=== PATIENT | female | born 1970 | race Caucasian/White ===

== ENCOUNTER 2020-07-26 05:59 | Emergency (ER) | payer OTHER ==
[2020-07-26 06:11] VITALS: TEMP 98.3
[2020-07-26] MEDS ORDERED: DIAZEPAM 5 MG/ML 2 ML INJ IVP STA (06:27)
[2020-07-26] MEDS ORDERED: KETOROLAC 15 MG/ML 1 ML VIAL IVP STA (06:30)
--- NOTE | 2020-07-26 06:39 | ED ---
Back Pain HPI - General Chief Complaint: Back Pain/Injury Stated Complaint: Back Pain Time Seen by Provider: 07/26/20 06:02 Source: patient, RN notes reviewed Limitations: no limitations - History of Present Illness Initial Comments: 79-year-old female presents emergency Department chief complaint of low back pain. Patient's been struggling with back pain since . She states that she was moving stuff at her house. Patient states that she felt some pulling in her back. Patient states pain is worsened in which she has pain radiating down her left leg. Patient does admit that she has a history of fusion dentist in 2018 L2 through L5. Patient denies any bowel, bladder incontinence or retention. Denies any saddle anesthesia or lower extremity paresthesias. She does have radicular symptoms of her left leg. Patient is able to ambulate and ambulated in the emergency department. Patient denies any abdominal pain no fevers or chills. Patient did take 2 [place] this morning which has mildly improved her symptoms. - Related Data Previous Rx's Medication Instructions Recorded Orphenadrine [Norflex] 100 mg PO Q12H #14 tablet.er 07/26/20 predniSONE 50 mg PO DAILY #5 tab 07/26/20 Allergies Allergy/AdvReac Type Severity Reaction Status Date / Time No Known Allergies Allergy Verified 07/26/20 06:10 Review of Systems ROS Statement: Those systems with pertinent positive or pertinent negative responses have been documented in the HPI. ROS Other: All systems not noted in ROS Statement are negative. Past Medical History Past Medical History: Osteoarthritis (OA) History of Any Multi-Drug Resistant Organisms: None Reported Past Surgical History: Back Surgery, Cholecystectomy, Orthopedic Surgery Past Psychological History: Anxiety, Depression Smoking Status: Former smoker Past Alcohol Use History: Occasional Past Drug Use History: None Reported General Exam Limitations: no limitations General appearance: alert, in no apparent distress Head exam: Present: atraumatic, normocephalic, normal inspection Eye exam: Present: normal appearance, PERRL, EOMI. Absent: scleral icterus, conjunctival injection, periorbital swelling Respiratory exam: Present: normal lung sounds bilaterally. Absent: respiratory distress, wheezes, rales, rhonchi, stridor Cardiovascular Exam: Present: regular rate, normal rhythm, normal heart sounds. Absent: systolic murmur, diastolic murmur, rubs, gallop, clicks GI/Abdominal exam: Present: soft, normal bowel sounds. Absent: distended, tenderness, guarding, rebound, rigid Extremities exam: Present: other (Lower extremity pulses equal bilaterally color equal warmth patient has full strength of lower extremities there is no unilateral weakness.) Back exam: Present: full ROM (Moderate discomfort with movement), tenderness (Left lumbar), muscle spasm, paraspinal tenderness. Absent: CVA tenderness (R), CVA tenderness (L), vertebral tenderness Neurological exam: Present: alert, oriented X3 Skin exam: Present: warm, dry, intact, normal color. Absent: rash Course Vital Signs 07/26/20 06:07 Temperature 98.3 F Pulse Rate 92 Respiratory 20 Rate Blood Pressure 131/85 O2 Sat by Pulse 96 Oximetry Medical Decision Making - Medical Decision Making X-rays reviewed stable postsurgical changes. Patient has no red flag symptoms. Patient has acute exacerbation of low back pain secondary to lifting boxes. Patient we discharged with oral steroids, pain control and muscle relaxers. Disposition Clinical Impression: Strain of lumbar region, Lumbar radiculopathy Disposition: HOME SELF-CARE Condition: Stable Instructions (If sedation given, give patient instructions): Acute Low Back Pain (ED) Additional Instructions: Please return to the Emergency Department if symptoms worsen or any other concerns. Prescriptions: Orphenadrine [Norflex] 100 mg PO Q12H #14 tablet.er predniSONE 50 mg PO DAILY #5 tab Is patient prescribed a controlled substance at d/c from ED?: No Referrals: Nonstaff,Physician [Primary Care Provider] - 1-2 days Time of Disposition: 07:55
[2020-07-26] MEDS ORDERED: KETOROLAC 15 MG/ML 1 ML VIAL ONE (06:41)
[2020-07-26] MEDS ORDERED: HYDROmorphone 1 MG/ML 1 ML SYRINGE IVP STA (06:55)
--- NOTE | 2020-07-26 07:51 | XR ---
EXAMINATION TYPE: XR lumbosacral spine min 4V DATE OF EXAM: 07/26/2020 CLINICAL HISTORY: pain COMPARISON: NONE TECHNIQUE: Frontal, lateral, and oblique images of the lumbar spine are obtained. FINDINGS: Postoperative changes of lumbar laminectomy and fusion. Intervertebral spacer at L4-5. Alig nment is anatomic. There are 5 lumbar type vertebral bodies identified. The lumbar spine shows [employer] alignment without evidence of acute fracture or dislocation. Vertebral body heights are withi n normal limits. The overlying soft tissue appears unremarkable. IMPRESSION: No acute fracture or dislocation is seen in the lumbar spine.ICD 10 NO FRACTURE, INITIAL EVALUATION
[2020-07-26] MEDS ORDERED: methylPREDNISolone SOD SUCCI 125 MG/2 ML VIAL IV STA (07:53)
[2020-07-26 08:04] VITALS: BP 128/93; PULSE 78; RESP 16
== END 2020-07-26 08:15 | disposition home or self-care (01) ==
LOC: EC 05:59
DX: S39.012A Strain of muscle, fascia and tendon of lower back, initial encounter (principal); M54.16 Radiculopathy, lumbar region; Z87.891 Personal history of nicotine dependence; Z98.1 Arthrodesis status; X58.XXXA Exposure to other specified factors, initial encounter
CPT/HCPCS: 72110; 99283; 96374; 96375 ×3; J2930; J3360; J1170; J1885

== ENCOUNTER 2021-02-21 18:45 | Emergency (ER) | payer MEDICARE, OTHER ==
[2021-02-21 19:52] VITALS: RESP 20
--- NOTE | 2021-02-21 20:33 | XR ---
EXAMINATION TYPE: XR chest 2V DATE OF EXAM: 02/21/2021 COMPARISON: NONE HISTORY: Fever and cough TECHNIQUE: 2 views FINDINGS: Heart and mediastinum are normal. Lungs are clear. Costophrenic angles are clear. There are densities over the lower cervical spine that could BE fusion surgery. IMPRESSION: No active cardiopulmonary disease. Normal heart.
--- NOTE | 2021-02-21 21:25 | ED ---
General Adult HPI - General Chief complaint: Upper Respiratory Infection Stated complaint: headach/cough/sore throat/fever Source: patient Mode of arrival: ambulatory Limitations: no limitations - History of Present Illness Initial comments: 50-year-old female presents emergency room with reported cough, fever, congestion and headache for the past 3 days. She did attend a baby shower and therefore has concern that she came into contact with someone with Covid. Patient requesting Covid testing. Admits nausea without vomiting. No abdominal pain. No chest pain. No history of underlying lung or cardiac disease. Denies diarrhea. No other alleviating, precipitating or modifying factors - Related Data Previous Rx's Medication Instructions Recorded Orphenadrine [Norflex] 100 mg PO Q12H #14 tablet.er 07/26/20 predniSONE 50 mg PO DAILY #5 tab 07/26/20 Allergies Allergy/AdvReac Type Severity Reaction Status Date / Time No Known Allergies Allergy Verified 02/21/21 19:52 Review of Systems ROS Statement: Those systems with pertinent positive or pertinent negative responses have been documented in the HPI. ROS Other: All systems not noted in ROS Statement are negative. Past Medical History Past Medical History: Osteoarthritis (OA) History of Any Multi-Drug Resistant Organisms: None Reported Past Surgical History: Back Surgery, Cholecystectomy, Orthopedic Surgery Additional Past Surgical History / Comment(s): neck surgery Past Psychological History: Anxiety, Depression Smoking Status: Former smoker Past Alcohol Use History: Occasional Past Drug Use History: None Reported General Exam Limitations: no limitations Course Vital Signs 02/21/21 02/21/21 19:48 21:30 Temperature 98.2 F 98.9 F Pulse Rate 84 77 Respiratory 20 20 Rate Blood Pressure 124/73 130/86 O2 Sat by Pulse 97 97 Oximetry Medical Decision Making - Medical Decision Making Upon arrival patient is swabbed for Covid in the waiting room. She also sent for chest x-ray. Patient brought back to the [facility] room. Patient is covid positive. Chest x-ray demonstrates no active cardiopulmonary disease. Patient requests discharge. Discussed treatment with BAM which she refused. Patient to quarentine for 14 days or until symptoms improve. Return to the ED for any new or worsening symptoms. Patient discharged in stable condision. - Lab Data Lab Results 02/21/21 Range/Units 19:53 Coronavirus (PCR) Detected A (Not Detectd) Disposition Clinical Impression: Cephalgia, COVID-19 Disposition: HOME SELF-CARE Condition: Stable Instructions (If sedation given, give patient instructions): Coronavirus Disease 2019 (COVID-19) Additional Instructions: Please follow up with your primary care doctor in 2-4 days. Quarantine until your symptoms improve. Alternate taking Motrin and Tylenol for fever and pain. Return to the emergency room and for any new or worsening symptoms - especially if your oxygen falls below 90% Is patient prescribed a controlled substance at d/c from ED?: No Referrals: Nonstaff,Physician [Primary Care Provider] - 1-2 days Time of Disposition: 21:25
[2021-02-21 21:33] VITALS: BP 130/86; PULSE 77; TEMP 98.9
== END 2021-02-21 21:30 | disposition home or self-care (01) ==
LOC: EC 18:45
DX: U07.1 COVID-19 (principal); M19.90 Unspecified osteoarthritis, unspecified site; F41.9 Anxiety disorder, unspecified; F32.9 Major depressive disorder, single episode, unspecified; Z87.891 Personal history of nicotine dependence
CPT/HCPCS: 71046; 87635; 99284

== ENCOUNTER → 2024-07-19 | Outpatient (CLI) | payer MEDICARE | END | disposition home or self-care (01) | LOC: LABPAT 11:49 | PROVIDERS: ATTEND Orthopaedic Surgery | DX: Z01.812 Encounter for preprocedural laboratory examination (principal); T84.039A Mechanical loosening of unspecified internal prosthetic joint, initial encounter; X58.XXXA Exposure to other specified factors, initial encounter; Z22.322 Carrier or suspected carrier of Methicillin resistant Staphylococcus aureus | CPT/HCPCS: 87070 ==

== ENCOUNTER 2024-08-17 05:33 | Inpatient (IN) | payer MEDICARE ==
[2024-08-11 10:04] VITALS: BMI 35.2
--- NOTE | 2024-08-16 09:07 | P.HPOR ---
History of Present Illness H&P Date: 08/16/24 Chief Complaint: Left knee pain Patient is a 53-year-old female who presents with progressive left knee pain for the past year. She previously underwent unicompartmental arthroplasty in 2017. She has limited motion along with significant pain with weightbearing activities. She is using a cane. She has swelling. She's tried medications without much relief. Review of Systems Per HPI Past Medical History Past Medical History: Chest Pain / Angina, GERD/Reflux, Hyperlipidemia, Liver Disease, Osteoarthritis (OA) Additional Past Medical History / Comment(s): DDD, DJD, ARRYTHMIA, INSOMNIA, ALCOHOLIC FATTY LIVER History of Any Multi-Drug Resistant Organisms: None Reported Past Surgical History: Back Surgery, Breast Surgery, Section, Cholecystectomy, Orthopedic Surgery, Tubal Ligation, Uterine Ablation Additional Past Surgical History / Comment(s): D&C, RIGHT OOPHORECTOMY, BREAST BX'S, LUMBAR LAMINECTOMY, CERVICAL FUSION, LYSIS OF ADHESIONS/LAPAROSCOPY on the left knee medial compartment arthroplasty Past Anesthesia/Blood Transfusion Reactions: No Reported Reaction Past Psychological History: Anxiety, Depression Smoking Status: Former smoker Past Alcohol Use History: Occasional Past Drug Use History: None Reported - Past Family History Mother Family Medical History: Cancer Additional Family Medical History / Comment(s): UTERINE CA Medications and Allergies Home Medications Medication Instructions Recorded Confirmed Type Ascorbic Acid [Vitamin C] 500 mg PO DAILY 08/11/24 08/11/24 History Atorvastatin [Lipitor] 10 mg PO HS 08/11/24 08/11/24 History Cholecalciferol [Vitamin D3 (25 25 mcg PO DAILY 08/11/24 08/11/24 History Mcg = 1000 Iu)] Cyanocobalamin [Vitamin B-12] 500 mcg PO DAILY 08/11/24 08/11/24 History Cyclobenzaprine [Flexeril] 10 mg PO TID PRN 08/11/24 08/11/24 History Escitalopram Oxalate [Lexapro] 20 mg PO QAM 08/11/24 08/11/24 History Fluticasone Nasal Cades [Flonase 1 spray EA NOSTRIL DAILY PRN 08/11/24 08/11/24 History Nasal Cades] HYDROcodone/APAP 5-325MG [Central 1 tab PO Q6HR PRN 08/11/24 08/11/24 History 5-325] Lidocaine 5% Patch [Lidoderm] 2 patch TOPICAL DAILY 08/11/24 08/11/24 History Melatonin 5 mg PO HS PRN 08/11/24 08/11/24 History Multivitamins, Thera [Multivitamin 1 tab PO DAILY 08/11/24 08/11/24 History (formulary)] Pregabalin [Lyrica] 50 mg PO BID 08/11/24 08/11/24 History Tirzepatide [Zepbound] 5 mg SQ TH 08/11/24 08/11/24 History Turmeric Root Extract [Turmeric] 500 mg PO DAILY 08/11/24 08/11/24 History buPROPion HCL [buPROPion HCL SR] 150 mg PO Q12HR 08/11/24 08/11/24 History hydrOXYzine HCL [Atarax] 25 mg PO HS PRN 08/11/24 08/11/24 History Allergies Allergy/AdvReac Type Severity Reaction Status Date / Time morphine AdvReac SEVERE Verified 08/11/24 09:22 HEADACHE Physical Examination - Knee left Appearance: effusion Effusion grade: grade 2 Tenderness with palpation: anterior, lateral Pain: throughout ROM Gait: limping ROM: extension: -15 degrees ROM: flexion: 100 degrees Crepitus with motion: Yes Strength: extension: 5/5 Strength: flexion: 5/5 Meniscal tests: lateral meniscal tests: positive, lateral joint line pain: positive Results She is a well-developed well-nourished female approximately 5 foot 10, 239 p ounds of endomorphic habitus. HEENT exam is nonfocal, neck is supple. She has painless passive motion of her left hip. Straight leg raise is negative. She's tender about the lateral joint line of the left knee. Collaterals are stable, Becky's negative, and Camille's is equivocal. She has genu valgum alignment. Her distal neurovascular exam appears intact in the left lower extremity. - Diagnostic results Knee x-ray: image reviewed (3 views of the left knee obtaining the office show severe lateral and patellofemoral compartment joint space narrowing. The previous medial compartment arthroplasty is present.) Assessment and Plan Assessment: Status post left knee medial unicompartmental arthroplasty with progressive lateral and patellofemoral compartment osteoarthrosis Plan: I talked to the patient at length regarding her condition along with treatment options. At this point she is quite symptomatic and limited despite conservative measures. After a thorough discussion sheopts to proceed with surgery. We will proceed with revision left total knee arthroplasty. Risks and benefits were discussed at length in layman's terms. We will institute DVT prophylaxis postoperatively.
[~2024-08-17 05:33] MED LIST: ACETAMINOPHEN TAB 500 MG TAB PO PRN; TRANEXAMIC 1,000 MG/100ML-NACL 1,000 MG in SALINE 1 100ML.BAG IVPB PRN
[2024-08-17] MEDS: IV FLUID CONTINUATION 1,000 ML IV ONE ×2 (06:51→12:04)
[2024-08-17] MEDS: MELOXICAM 7.5 MG TAB PO PRN (07:00)
[2024-08-17] MEDS: SCOPOLAMINE 1 MG/72 HR PATCH TRANSDERM STA (07:10)
[2024-08-17] MEDS: MIDAZOLAM 2 MG/2 ML VIAL IV STA (07:10)
[2024-08-17] MEDS: fentaNYL (PF) 50 MCG/ML 2 ML AMP IVP STA (07:10)
[2024-08-17 07:25] LABS: Glucose,Whole Blood 89 mg/dL (70-110)
[2024-08-17] MEDS: LACTATED RINGERS 1,000 ML IV SCH (07:28)
[2024-08-17] MEDS: DEXAMETHASONE SOD PHOSPHATE 4 MG/ML 1 ML VIAL IV ONE (07:28)
[2024-08-17] MEDS: ONDANSETRON 4 MG/2 ML VIAL IVP ONE (07:29)
[2024-08-17] MEDS ORDERED: HYDROmorphone (PF) 1 MG/ML ONE (07:35)
[2024-08-17] MEDS ORDERED: TRANEXAMIC 1,000 MG/100ML-NACL PREMIX BAG ONE (07:35)
[2024-08-17] MEDS ORDERED: ROPIVACAINE 5 MG/ML 30 ML VIAL ONE (07:35)
[2024-08-17] MEDS ORDERED: MIDAZOLAM 2 MG/2 ML VIAL ONE (07:35)
[2024-08-17] MEDS ORDERED: SODIUM CHLORIDE 0.9% (PF) 10 ML VIAL ONE (07:35)
[2024-08-17] MEDS ORDERED: PROPOFOL 10 MG/ML 20 ML VIAL IV ONE (07:35)
[2024-08-17] MEDS ORDERED: NEOSTIGMINE 1 MG/ML 10 ML VIAL ONE (07:35)
[2024-08-17] MEDS ORDERED: ROCURONIUM 10 MG/ML (5 ML VIAL) IV ONE (07:35)
[2024-08-17] MEDS ORDERED: GLYCOPYRROLATE 0.2 MG/ML 2 ML VIAL ONE (07:35)
[2024-08-17] MEDS ORDERED: SUCCINYLCHOLINE CHLORIDE 200 MG/10 ML VIAL IV ONE (07:35)
[2024-08-17] MEDS ORDERED: fentaNYL (PF) 50 MCG/ML 2 ML AMP ONE (07:35)
[2024-08-17] MEDS ORDERED: LIDOCAINE 1% INJ 10MG/ML (20 ML MDV) ONE (07:35)
[2024-08-17] MEDS: LACTATED RINGERS 1,000 ML IV ONE (08:18)
[2024-08-17] MEDS: ceFAZolin 1,000 MG in SODIUM CHLORIDE 0.9% 1,000 ML IRRIGATION ONE (08:26)
[2024-08-17] MEDS ORDERED: HYDROcodone/APAP 5-325MG 1 EACH TAB PO PRN (09:48)
[2024-08-17] MEDS ORDERED: MAGNESIUM HYDROXIDE 2,400 MG/30 ML CUP PO PRN (09:48)
[2024-08-17] MEDS ORDERED: hydrOXYzine pamoate 25 MG CAP PO PRN (09:48)
[2024-08-17] MEDS ORDERED: NALOXONE 0.4 MG/ML 1 ML VIAL IV PRN (09:48)
--- NOTE | 2024-08-17 10:16 | P.OP ---
Date of Procedure: 08/17/24 Preoperative Diagnosis: Left knee severe lateral and patellofemoral compartment osteoarthrosis Status post left knee medial compartment arthroplasty Postoperative Diagnosis: Same Procedure(s) Performed: Left revision total knee arthroplastycementedposterior stabilized Implants: DePuy attune size 6 narrow cemented femoral component, size 5 cemented tibial component with a 14 x 50 mm stem extension, 12 mm articular surface, 32 mm cemented patellar component. This is a posterior stabilized implant. Anesthesia: GETA Surgeon: Aamir Kennedy Facility Assistant #1: Jamarcus Cuevas Estimated Blood Loss (ml): 50 Pathology: none sent Condition: stable Disposition: PACU Indications for Procedure: The patient is a 53-year-old female who presents with progressive left knee pain secondary to progressive osteoarthrosis of the lateral and patellofemoral compartments despite conservative measures. A discussion of the risks and benefits of operative intervention versus continued conservative measures was made with the patient. She opted to proceed with surgery. Operative risks include infection, neurovascular injury, development of blood clots, fracture, possible component loosening/failure and possible need for subsequent procedures was discussed. Informed consent was obtained. Operative Findings: As below Description of Procedure: The patient was brought to the operating room, and after induction of general anesthesia the left lower extremity was prepped and draped in a normal fashion. The tourniquet was inflated to 270 mm marker. A longitudinal incision extending 3 finger breaths above the superior pole of patella extending to the medial aspect the tibial tubercle was then made. The skin and subcutaneous tissues were divided sharply. Electrocautery was used for hemostasis. A medial parapatellar arthrotomy was performed. The medial soft tissues to include the superficial and deep portions of the medial collateral ligament were elevated subperiosteally. The patella was everted. A portion of the retropatellar fat pad was excised sharply. The anterior cruciate ligament was sacrificed. Blunt retractors were placed. The tibial articular surface was then removed. The medial femoral component was then removed utilizing thin osteotomes and a sagittal saw. Minimal bone loss was noted. The tibial component was removed in a similar fashion. A starting hole was made in the distal femur 1 cm anterior to the posterior cruciate ligament origin. An intramedullary femoral guide was then inserted planning on 5 valgus distal cut with 9 mm distal resection. The cutting block was pinned in place. The distal cut was then made. The posterior referencing sizing guide was utilized. I felt size 6 narrow was most appropriate. 3 of external rotation was built into the system and verified off the trans-epicondylar axis and the posterior condyles. The cutting block was pinned in place. The anterior, posterior, and chamfer cuts then made. Bone fragments were removed. The intercondylar guide was placed and the notch cut was made with a sagittal saw. The bone block was removed in one fragment. The trial component was then placed. There is good anterior to posterior and medial to lateral fit. The distal peg holes were drilled. The trial component was removed. Attention was then paid towards preparing the proximal tibia. An extra medullary guide was utilized in line with the tibial shaft and second metatarsal distally. I planned on 8 mm resection from the lateral compartment. The cutting block was pinned in place. The proximal tibial cut was then made. The bone was removed in one fragment. The remnants of the lateral meniscus was excised at the capsular junction with electrocautery. The tibia sized most appropriately at size 5. The trial femoral and tibial components were placed along with a 12 mm articular surface. I was able to obtain full flexion and extension with internal and external rotation. After several flexion and extension cycles, the tibial rotation was marked with electrocautery line with the medial one third of the tibial tubercle. Attention was then paid towards preparing the patella. A patella reamer was utilized taking stem to 14 mm of bone stock. A good flush cut was made. The patella sized most appropriately 32 mm. The peg holes were drilled. The trial components placed. I had good patellofemoral tracking with no hands technique. The trial components were then removed. The tibia was prepared in the appropriate rotation with appropriate drill and keel punch planning on a 14 mm x 50 mm stem extension. The posterior osteophytes were removed with a curved osteotome. The flexion and extension gaps were checked and felt to be symmetric at 12 mm. A trial components were then removed. The bony surfaces were prepared with pulsatile lavage and dried. The tibial component was then cemented place was fully seated. Excess cement was removed. The femoral component cemented place and was fully seated. Excess cement was removed. The trial 12 mm articular surface was placed and the knee was put in full extension. The patella component was cemented place. After the cement had sufficiently hardened, the knee was again taken through a range of motion. Again I was able to obtain full flexion and extension with varus and valgus stress. The trial 12 mm articular surface was removed and the final one inserted. This was fully seated. Care was taken to avoid any soft tissue interposition. Pulsatile lavage was again utilized. The medial parapatellar arthrotomy was closed with #2 Ethibond suture. The tourniquet was deflated with approximately 70 minutes total tourniquet time. Final hemostasis was obtained with the cautery. There was minimal bleeding therefore a deep drain was not placed. The subcutaneous tissues were reapproximated with interrupted 2-0 Vicryl sutures. The skin was reapproximated with 3-0 subcuticular strata fix suture. Skin tape and adhesive was applied. A sterile dressing was applied. The patient was awoken from general anesthesia and transferred to recovery room in good condition. Blood loss was estimated at 50 mL. No complications were incurred. Sponge and needle counts were correct at the end of the case. Jamarcus WELCH assisted during the major components of this case to include exposure, bone resection, implantation, and closure.
--- NOTE | 2024-08-17 10:21 | P.ANPRN ---
Procedure Note - Anesthesia - Nerve Block Performed Left Adductor Canal Infusion Time Out Performed: Yes ([id number]) Date of Procedure: 08/17/24 Procedure Start Time: 07:10 Procedure Stop Time: 07:15 Location of Patient: PreOp Indication: Acute Post-Operative Pain, Requested by Surgeon Specifically requested for management of pain by : Aamir Kennedy Sedation Type: Sedate with meaningful contact maintained Preparation: Sterile Prep, Sterile Dressing Position: Supine Catheter Depth at Skin (cm): 7 Catheter: Indwelling Needle Types: Pajunk Needle Gauge: 18 Ultrasound used to visualize needle placement: Yes Ultrasound used to observe medication spread: Yes Injectate: 0.5% Ropivacaine (see comment for volume) (15cc +10cc nacl pf) Blood Aspirated: No Pain Paresthesia on Injection Noted: No Resistance on Injection: Normal Image Stored and Saved: Yes Events: Uneventful and Well Tolerated
[2024-08-17] MEDS: fentaNYL (PF) 50 MCG/ML 2 ML AMP IV PRN (10:22)
--- NOTE | 2024-08-17 10:22 | P.ANPRN ---
Procedure Note - Anesthesia - Nerve Block Performed Left iPack Single Time Out Performed: Yes ([id number]) Date of Procedure: 08/17/24 Procedure Start Time: 07:15 Procedure Stop Time: 07:19 Location of Patient: PreOp Indication: Acute Post-Operative Pain, Requested by Surgeon Specifically requested for management of pain by DrTimbo: Aamir Kennedy Sedation Type: Sedate with meaningful contact maintained Preparation: Sterile Prep Position: Supine Catheter: None Needle Types: Pajunk Needle Gauge: 21 Ultrasound used to visualize needle placement: Yes Ultrasound used to observe medication spread: Yes Injectate: 0.5% Ropivacaine (see comment for volume) (15cc +10cc nacl pf) Blood Aspirated: No Pain Paresthesia on Injection Noted: No Resistance on Injection: Normal Image Stored and Saved: Yes Events: Uneventful and Well Tolerated
--- NOTE | 2024-08-17 10:54 | XR ---
EXAMINATION TYPE: XR knee limited LT DATE OF EXAM: 08/17/2024 COMPARISON: NONE TECHNIQUE: Two views submitted HISTORY: Post op FINDINGS: There is a prosthetic knee in near anatomic alignment. There is soft tissue edema and soft tissue e mphysema. IMPRESSION: 1. Postoperative change. Appears in near-anatomic alignment [facility] Cayetano Randolph, , 08/17/2024 10:52 AM
[2024-08-17] MEDS: diphenhydrAMINE 50 MG/ML 1 ML VIAL IVP PRN (10:58)
[2024-08-17] MEDS: ROPIVACAINE 1,100 MG, SODIUM CHLORIDE 0.9% 500 ML 330 ML, EMPTY PAIN BALL 1 EACH MISCELLANE PRN (11:02)
[2024-08-17] MEDS: HYDROmorphone 0.5 MG/0.5 ML SYRINGE IVP PRN (11:06)
[2024-08-17 13:26] VITALS: RESP 16
[2024-08-17] MEDS ORDERED: hydrOXYzine HCL 25 MG TAB PO PRN (15:39)
[2024-08-17] MEDS ORDERED: FLUTICASONE NASAL 50MCG/SPRAY 16GM BTL EA NOSTRIL PRN (15:39)
[2024-08-17] MEDS ORDERED: MELATONIN 5 MG TABLET PO PRN (15:39)
[2024-08-17] MEDS: HYDROcodone/APAP 7.5-325MG 1 EACH TAB PO PRN (16:13)
[2024-08-17] MEDS: HYDROmorphone 1 MG/ML 1 ML SYRINGE IVP PRN (21:27)
[2024-08-17] MEDS: CYCLOBENZAPRINE 10 MG TAB PO PRN (21:28)
[2024-08-17] MEDS: PREGABALIN 50 MG CAP PO SCH (21:28)
[2024-08-17] MEDS: SENNOSIDES-DOCUSATE SODIUM 1 EACH TAB PO SCH (21:28)
[2024-08-17] MEDS: buPROPion SR 150 MG TABLET.ER PO SCH (21:28)
[2024-08-17] MEDS: ATORVASTATIN 10 MG TAB PO SCH (21:35)
[2024-08-18 07:39] VITALS: BP 120/78; PULSE 98; TEMP 97.2
[2024-08-18 09:07] LABS: HGB 10.4 g/dL (12.0-15.0); MCHC 32.5 g/dL (32.0-37.0); MCV 95.5 FL (80.0-97.0); Mean Platelet Volume 11.4 FL (9.5-12.2); NRBC Per 100 WBC 0 X 10*3/uL (0.00-0.01); Platelet Count 205 X 10*3/uL (140-440); RBC 3.35 X 10*6/uL (4.10-5.20); RDW 13.6 % (11.5-14.5); WBC 6.82 X 10*3/uL (4.50-10.00)
[2024-08-18 09:08] LABS: Basophils # (A) 0.01 X 10*3/uL (0.00-0.10); Basophils % (A) 0.1 %; Eosinophils # (A) 0.01 X 10*3/uL (0.04-0.35); Eosinophils % (A) 0.1 %; Lymphocytes % (A) 8.8 %; Monocytes # (A) 0.58 X 10*3/uL (0.20-1.00); Monocytes % (A) 8.5 %; Neutrophils # (A) 5.57 X 10*3/uL (1.80-7.70); Neutrophils % (A) 81.8 %
--- NOTE | 2024-08-18 09:10 | P.PN ---
Progress Note - Text Progress Note Date: 08/18/24 patient was seen and evaluated at bedside. Status post postoperative day 1 for Left total knee arthroplasty patient had adductor canal catheter for postop pain control. Patient rated pain at rest 5-6 out of 10 in severity. Patient describes pain is aching, throbbing type on the sides of the knee and back of the knee. Patient started walking with support. With activity patient pain levels are 8-9 out of 10 in severity. With the help of oral pain medications pain levels are tolerable. Patient denied any weakness/ numbness in lower extremities. patient denied any fever, pain over the catheter site. Physical exam: Patient vital signs stable Patient is alert awake oriented 3 responding to all questions appropriately Examination of the catheter site showed dressing intact, no leaking fluid around the catheter, no redness, no tenderness over the catheter insertion area. plan: status post postoperative day 1 for left total knee arthroplasty with adductor canal catheter for pain control. Patient was discussed to continue the medication at the rate of 12 mL per hour until the pump is completely empty and instructed the patient how to discontinue the catheter.
[2024-08-18 09:39] LABS: ALT 22 U/L (8-44); AST 21 U/L (13-35); Albumin 3.8 g/dL (3.8-4.9); Albumin/Globulin Ratio 2.11 Ratio (1.60-3.17); Alkaline Phosphatase 73 U/L (41-126); BUN/Creat Ratio 8.62 Ratio (12.00-20.00); Blood Urea Nitrogen 6.9 mg/dL (9.0-27.0); Calcium 8.6 mg/dL (8.7-10.3); Carbon Dioxide 24.9 mmol/L (21.6-31.8); Chloride 103 mmol/L (96-109); Globulin 1.8 g/dL (1.6-3.3); Glucose 130 mg/dL (70-110); Potassium 3.8 mmol/L (3.5-5.5); Sodium 138 mmol/L (135-145); Total Bilirubin 0.3 mg/dL (0.3-1.2); Total Protein 5.6 g/dL (6.2-8.2)
[2024-08-18] MEDS: RIVAROXABAN 10 MG TAB PO SCH (10:16)
[2024-08-18] MEDS: MULTIVITAMINS, THERA 1 EACH TAB PO SCH (10:16)
[2024-08-18] MEDS: ESCITALOPRAM 20 MG TAB PO SCH (10:16)
[2024-08-18] MEDS: CYANOCOBALAMIN 500 MCG TAB PO SCH (10:16)
[2024-08-18] MEDS: CHOLECALCIFEROL 25 MCG (1000 IU) TABLET PO SCH (10:17)
[2024-08-18] MEDS: LIDOCAINE 4% PATCH TOPICAL SCH (10:24)
--- NOTE | 2024-08-18 10:50 | P.DS ---
Providers Date of admission: 08/17/24 05:33 Expected date of discharge: 08/18/24 Attending physician: Aamir Kennedy Consults: 08/17/24 09:48 Consult Physician Routine Consulting Provider: Yojana Kurtz Consult Reason/Comments: medical management s/p revision right total knee arthroplasty Do you want consulting provider notified?: Yes Primary care physician: Jose Murdock MD Hospital Course: Date of admission: 08/17/2024 Date of discharge: 08/18/2024 Admission diagnosis: Left knee severe lateral and patellofemoral compartment osteoarthrosis Status post left knee medial compartment arthroplasty Discharge diagnosis: same Attending physician: Dr. Kennedy Surgical procedures: Revision left total knee arthroplasty Brief history: Patient is a 53-year-old female with a history of Left knee severe lateral and patellofemoral compartment osteoarthrosis status post left knee medial compartment arthroplasty. At this point patient has failed conservative treatment measures and has opted to proceed with a elective revision left total knee arthroplasty. Hospital course: Details of patient's surgery can be found in operative report. Patient tolerated the procedure well and was subsequently transported to orthopedic floor. Patient's orthopeidc and medical care was provided daily. Patient had daily laboratory tests performed for evaluation of overall blood counts. Patient had daily physical therapy to include strengthening range of motion as well as education with walker ambulation. Patient was treated with Xarelto for their postoperative DVT prophylaxis during their inpatient stay. Patient was noted to have a relatively uneventful postoperative course. Patient reported satisfactory pain control with oral pain medications by postoperative day 1. Patient showed satisfactory progress with physical therapy. Patient moved steadily through the program and had no difficulty meeting the goals by postoperative day 1. Given patient's otherwise satisfactory course and having met physical therapy goals, plan is to discharge patient home with health services on postoperative day 1. Discharge condition/disposition: Patient will be discharged home with health services in stable condition. Discharge medications: Instructions are given on resumption of patient's normal daily medications per primary care recommendation, in addition patient will be prescribed Roy 7.5 mg/325 mg; senna; Eliquis 2.5 mg twice a day 2 weeks. Discharge instructions: 1. Wound care and infection precautions, keep incision dry and covered while showering, no lotions, creams, moisturizers. No soaking, tubs, pools, hottubs. Do not scrub over the incision. 2. Weight-bear as tolerated with walker / cane until follow-up. 3. Ice and elevate when necessary. Do not exceed 20 minutes per hour with ice pack. 4. Utilize compression sleeve until seen at first follow up appointment. 5. Visiting nursing care. 6. Home physical therapy including home CPM. 7. Pain meds and anticoagulants per prescription. 8. Pain medication has potential to cause constipation. Increase oral fluid and fiber intake. Contact primary care provider if you have not had a bowel movement within 48 hours after discharge 9. No anti-inflammatory medication until discussed at first post operative visit, this including Motrin, Aleve, Mobic, Diclofenac. 10. Follow up in office at 2 weeks postop with Rao Wu PA-C / Jamarcus Cuevas PA-C 11. Follow up with your primary care doctor 7-10 days after discharge. 12. Contact [facility] with any questions, . Assessment: Left knee severe lateral and patellofemoral compartment osteoarthrosis Status post left knee medial compartment arthroplasty Procedures: Revision left total knee arthroplasty Patient Condition at Discharge: Good Plan - Discharge Summary Discharge Rx Participant: Yes New Discharge Prescriptions: New Apixaban [Eliquis] 2.5 mg PO BID #60 tab HYDROcodone/APAP 7.5-325MG [Roy 7.5-325] 1 - 2 tab PO Q6HR PRN #36 tab PRN Reason: Pain Sennosides/Docusate Sodium [Senna Plus 8.6-50 mg Softgel] 1 each PO DAILY #20 capsule No Action Tirzepatide [Zepbound] 5 mg SQ TH Pregabalin [Lyrica] 50 mg PO BID Multivitamins, Thera [Multivitamin (formulary)] 1 tab PO DAILY Melatonin 5 mg PO HS PRN PRN Reason: Insomnia Lidocaine 5% Patch [Lidoderm] 2 patch TOPICAL DAILY Fluticasone Nasal [place] [Flonase Nasal [place]] 1 spray EA NOSTRIL DAILY PRN PRN Reason: Allergy Symptoms Escitalopram Oxalate [Lexapro] 20 mg PO QAM buPROPion HCL [buPROPion HCL SR] 150 mg PO Q12HR hydrOXYzine HCL [Atarax] 25 mg PO HS PRN PRN Reason: Insomnia HYDROcodone/APAP 5-325MG [Roy 5-325] 1 tab PO Q6HR PRN PRN Reason: Pain Cyclobenzaprine [Flexeril] 10 mg PO TID PRN PRN Reason: Muscle Spasm Cyanocobalamin [Vitamin B-12] 500 mcg PO DAILY Cholecalciferol [Vitamin D3 (25 Mcg = 1000 Iu)] 25 mcg PO DAILY Atorvastatin [Lipitor] 10 mg PO HS Ascorbic Acid [Vitamin C] 500 mg PO DAILY Turmeric Root Extract [Turmeric] 500 mg PO DAILY Discharge Medication List Ascorbic Acid [Vitamin C] 500 mg PO DAILY 08/11/24 [History] Atorvastatin [Lipitor] 10 mg PO HS 08/11/24 [History] Cholecalciferol [Vitamin D3 (25 Mcg = 1000 Iu)] 25 mcg PO DAILY 08/11/24 [History] Cyanocobalamin [Vitamin B-12] 500 mcg PO DAILY 08/11/24 [History] Cyclobenzaprine [Flexeril] 10 mg PO TID PRN 08/11/24 [History] Escitalopram Oxalate [Lexapro] 20 mg PO QAM 08/11/24 [History] Fluticasone Nasal [place] [Flonase Nasal [place]] 1 spray EA NOSTRIL DAILY PRN 08/11/24 [History] HYDROcodone/APAP 5-325MG [Roy 5-325] 1 tab PO Q6HR PRN 08/11/24 [History] Lidocaine 5% Patch [Lidoderm] 2 patch TOPICAL DAILY 08/11/24 [History] Melatonin 5 mg PO HS PRN 08/11/24 [History] Multivitamins, Thera [Multivitamin (formulary)] 1 tab PO DAILY 08/11/24 [History] Pregabalin [Lyrica] 50 mg PO BID 08/11/24 [History] Tirzepatide [Zepbound] 5 mg SQ TH 08/11/24 [History] Turmeric Root Extract [Turmeric] 500 mg PO DAILY 08/11/24 [History] buPROPion HCL [buPROPion HCL SR] 150 mg PO Q12HR 08/11/24 [History] hydrOXYzine HCL [Atarax] 25 mg PO HS PRN 08/11/24 [History] Apixaban [Eliquis] 2.5 mg PO BID #60 tab 08/18/24 [Rx] HYDROcodone/APAP 7.5-325MG [Roy 7.5-325] 1 - 2 tab PO Q6HR PRN #36 tab 08/18/24 [Rx] Sennosides/Docusate Sodium [Senna Plus 8.6-50 mg Softgel] 1 each PO DAILY #20 capsule 08/18/24 [Rx] Follow up Appointment(s)/Referral(s): Jamarcus Cuevas, PAC [PHYSICIAN PRODUCTION CONTROL CLERK] - 2 Weeks [facility],Equipment [NON-STAFF] - As Needed (*Please call [facility] once home to arrange delivery of the Continous Passive Motion (CPM) machine. ) [facility], [NON-STAFF] - 1-2 Days ([facility] will call you to schedule your in home nursing and physical therapy visits. ) Patient Instructions/Handouts: Knee Replacement (DC), Knee Replacement (GEN) Activity/Diet/Wound Care/Special Instructions: Orthopedic Discharge Instructions: 1. Wound care and infection precautions, keep incision dry and covered while showering, no lotions, creams, moisturizers. No soaking, pools, hot tubs. Do not scrub over incision. 2. Weight-bear as tolerated with walker / cane until follow-up. 3. Ice and elevate when necessary. Do not exceed 20 minutes per hour with ice pack. 4. Utilize compression sleeve until seen at first follow up appointment. 5. Pain meds and anticoagulants per prescription. 6. Pain medication has potential to cause constipation. Increase oral fluid and fiber intake. Contact primary care provider if you have not had a bowel movement within 48 hours after discharge. 7. No anti-inflammatory medication until discussed at first post operative visit, this including Motrin, Aleve, Mobic, Diclofenac. 8. Follow up in office at 2 weeks postop with Rao Wu PA-C / Jamarcus Cuevas PA-C 9. Follow up with your primary care doctor 7-10 days after discharge. 10. Contact [facility] with any questions, . Keep incision clean, dry, intact. While showering, cover fusion tape with Saran wrap. Keep fusion tape on until follow-up appointment in office in 2 weeks. Discharge Disposition: HOME WITH HOME HEALTH SERVICES
--- NOTE | 2024-08-18 11:05 | P.PN ---
Subjective Progress Note Date: 08/18/24 Principal diagnosis: Left knee severe lateral and patellofemoral compartment osteoarthrosis Status post left knee medial compartment arthroplasty Patient was seen at bedside this morning sitting up in chair with legs elevated and dressing present over knee. Patient says she is in a decent amount of pain, but medication has helped control this. She says she is looking forward to working with therapy this morning. She is hoping to go home later today. She says she has been up walking several times since surgery yesterday using walker up to the bathroom. She says she has urinated since surgery without issue. Patient says she has not had a bowel movement yet, however, patient says she has been passing gas. Patient denies chest pain, fever, shortness breath, nausea, vomiting, change in vision, loss of bowel/bladder control. Objective - Vital Signs Vital signs: Vital Signs Temp 97.2 F L 08/18/24 07:38 Pulse 98 08/18/24 07:38 Resp 16 08/18/24 07:38 BP 120/78 08/18/24 07:38 Pulse Ox 96 08/18/24 07:38 FiO2 Intake & Output 08/17/24 08/18/24 08/18/24 18:59 06:59 18:59 Intake Total 19500 Output Total 50 Balance 1900 2159 Intake: IV 1950 Oral 2159 Output: Estimated Blood Loss 50 Other: Voiding Method Toilet # Voids 3 6 - Exam Left knee: Incision is clean, dry, and intact. The exofin fusion tape is in good condition. There is minimal soft tissue swelling and ecchymosis surrounding the medial and lateral aspects of the incision. Calf is soft, no tenderness with palpation. Plantar flexion, dorsiflexion, EHL, FHL are intact. Sensory exam to light touch throughout the extremity is intact, dorsal pedis pulses 2+. - Labs CBC & Chem 7: 08/18/24 02:32 08/18/24 02:32 Labs: Abnormal Lab Results - Last 24 Hours (Table) 08/18/24 08/18/24 Range/Units 02:32 02:32 RBC 3.35 L (4.10-5.20) X 10*6/uL Hgb 10.4 L (12.0-15.0) g/dL Hct 32.0 L (37.2-46.3) % Immature Gran # 0.05 H (0.00-0.04) X 10*3/uL Lymphocytes # 0.60 L (0.90-5.00) X 10*3/uL Eosinophils # 0.01 L (0.04-0.35) X 10*3/uL BUN 6.9 L (9.0-27.0) mg/dL BUN/Creatinine Ratio 8.62 L (12.00-20.00) Ratio Glucose 130 H (70-110) mg/dL Calcium 8.6 L (8.7-10.3) mg/dL Total Protein 5.6 L (6.2-8.2) g/dL Assessment and Plan Assessment: Left knee severe lateral and patellofemoral compartment osteoarthrosis Status post left knee medial compartment arthroplasty - Postoperative day 1 status post revision left total knee arthroplasty Plan: 1. Left knee severe lateral and patellofemoral compartment osteoarthrosis status post left knee medial compartment arthroplasty - revision left total knee arthroplasty performed yesterday, 08/17/2024. Patient stable this morning. Patient did do well with therapy. Prescription for walker was signed. Discharge home today with health services. 2. Appreciate medical management 3. Pain management - Craig; Flexeril; Lyrica 4. DVT prophylaxis - Xarelto in hospital. Going home with Eliquis 2.5 mg twice a day 2 weeks 5. GI prophylaxis - senna 6. PT/OT - weightbearing as tolerated with walker 7. Encourage incentive spirometer use 8. Discharge planning - home today with health services Time with Patient: Less than 30
--- NOTE | 2024-08-19 14:49 | CONS ---
CONSULTATION REASON FOR CONSULTATION: Advice regarding liver disease and other medical issues, requested by Orthopedics. HISTORY OF PRESENT ILLNESS: This is a 53-year-old woman with a past medical history of hyperlipidemia, history of chronic liver disease, back surgery, was admitted after left total knee arthroplasty. There is no history of any fever, or rigors. No history of headache, loss of consciousness. The patient has some knee pain. PAST MEDICAL HISTORY: Reviewed include GERD, hyperlipidemia, liver disease. Rest of the history and rest of the chart is also reviewed. HOME MEDICATIONS: Reviewed include Benicar. Dose and rest of medications reviewed. ALLERGIES: Morphine. FAMILY HISTORY: History of uterine cancer. SOCIAL HISTORY: Previous history of smoking. REVIEW OF SYSTEMS: Fourteen-point review of systems is negative except as mentioned earlier. PHYSICAL EXAMINATION: VITAL SIGNS: Pulse is 101, blood pressure 120/84, respirations 16. HEENT: Conjunctivae normal. NECK: No JVD. CARDIOVASCULAR: S1, S2. RESPIRATIONS: Breath sounds diminished at the bases. ABDOMEN: Soft, nontender. LEGS: Status post left knee arthroplasty. NERVOUS SYSTEM: Nonfocal. LABORATORY DATA: Glucose 89. ASSESSMENT: 1. Status post left total knee arthroplasty. 2. History of hyperlipidemia. 3. History of chronic liver disease. 4. History of alcoholic fatty liver. 5. History of cholecystectomy. 6. Anxiety, depression. RECOMMENDATIONS AND DISCUSSION: This is a 53-year-old woman presented after surgery. At this time, I recommend to continue current medications. Resume the home medications, incentive spirometry. DVT prophylaxis. I would also recommend evaluation of LFTs to ensure normalcy. Otherwise, we will follow the patient closely. ANABEL / GLENN: [phone] /
--- NOTE | 2024-08-20 13:01 | P.PN ---
Subjective Progress Note Date: 08/18/24 This is a 53-year-old female who was admitted under orthopedic services status post left total knee replacement. Patient is postop day 1 and reports she would like to go home. Patient was able to work with physical therapy feeling somewhat sore although reports her pain is controlled on the pain medication. Patient home medications have been reviewed and resumed as appropriate and is medically stable for discharge once cleared by orthopedics. Review of systems: Constitutional: No reports of fatigue, fever, or chills Cardiovascular: No reports of chest pain or palpitations Respiratory: No reports of shortness of breath or cough GI: No reports of nausea, no reports of vomiting, no diarrhea : No reports of dysuria or retention Neurovascular: reports of generalized weakness, reports some left knee discomfort and minimal swelling All medications have been reviewed PHYSICAL EXAMINATION: GENERAL: The patient is alert and oriented x4, Well developed, well nourished. Obese HEENT: Pupils are round and equally reacting to light. EOMI. no scleral icterus. No conjunctival pallor. Normocephalic, atraumatic. No pharyngeal erythema. No thyromegaly. CARDIOVASCULAR: S1 and S2 muffled PULMONARY: diminished breath sounds bilaterally with no wheezing or rhonchi noted. ABDOMEN: soft. Nontender on exam. obese. non-distended, normoactive bowel sounds. No palpable organomegaly. MUSCULOSKELETAL: No joint swelling or deformity. EXTREMITIES: No cyanosis, clubbing, or pedal edema. Left knee dressing is dry and intact with some minimal swelling noted NEUROLOGICAL: Gross neurological examination did not reveal any focal deficits. Diffuse weakness SKIN: No rashes. Assessment: Status post left total knee arthroplasty History of hyperlipidemia History of chronic liver disease History of alcoholic fatty liver Anxiety, depression history Obesity with a BMI 34.3 GI prophylaxis DVT prophylaxis Full code Plan: Recommend to continue with current medications and management per orthopedic services. Patient reports was able to work with physical therapy today and did the stairs and did relatively well although having some mild discomfort afterwards. Patient would like to go home and has been cleared by orthopedics. Home medications reviewed and resumed as appropriate instructed the patient to follow-up with primary care provider on discharge in the outpatient setting Encouraged incentive spirometer use at least 10 times every hour while awake Continue with pain management and DVT prophylaxis per orthopedics Patient is medically stable once cleared by orthopedics Thank you kindly for this consultation. We will continue to follow with orthopedics during hospitalization. The impression and plan of care has been dictated by Katina Kennedy, nurse practitioner as directed. Dr. Jerardo MD I have performed a history and examination and MDM of this patient, discussed the same with the dictator, and agree with the dictator's assessment and plan as written ,documented as a scribe. Based on total visit time, I have performed more than 50% of the visit. Any additional findings or plans will be noted. Objective - Vital Signs Vital signs: Vital Signs Temp 97.2 F L 08/18/24 07:38 Pulse 98 08/18/24 07:38 Resp 16 08/18/24 07:38 BP 120/78 08/18/24 07:38 Pulse Ox 96 08/18/24 07:38 FiO2 Intake & Output 08/17/24 08/18/24 08/18/24 18:59 06:59 18:59 Intake Total 1951 2160 Output Total 50 Balance 1901 2160 Intake: IV 1950 Oral 0 Output: Estimated Blood Loss 50 Other: Voiding Method Toilet # Voids 3 6 - Labs CBC & Chem 7: 08/18/24 02:32 08/18/24 02:32 Labs: Abnormal Lab Results - Last 24 Hours (Table) 08/18/24 08/18/24 Range/Units 02:32 02:32 RBC 3.35 L (4.10-5.20) X 10*6/uL Hgb 10.4 L (12.0-15.0) g/dL Hct 32.0 L (37.2-46.3) % Immature Gran # 0.05 H (0.00-0.04) X 10*3/uL Lymphocytes # 0.60 L (0.90-5.00) X 10*3/uL Eosinophils # 0.01 L (0.04-0.35) X 10*3/uL BUN 6.9 L (9.0-27.0) mg/dL BUN/Creatinine Ratio 8.62 L (12.00-20.00) Ratio Glucose 130 H (70-110) mg/dL Calcium 8.6 L (8.7-10.3) mg/dL Total Protein 5.6 L (6.2-8.2) g/dL
== END 2024-08-18 14:33 | disposition home health service (06) | DRG 468 ==
LOC: 2ORMAIN 05:33 → EDSTATUS 07:30 → 4SSUR 12:54
PROVIDERS: ADMIT Orthopaedic Surgery; ATTEND Orthopaedic Surgery
PROC: 0SRD0J9 Replacement of Left Knee Joint with Synthetic Substitute, Cemented, Open Approach (ICD-10-PCS; 2024-08-17)
PROC: 3E0T3BZ Introduction of Anesthetic Agent into Peripheral Nerves and Plexi, Percutaneous Approach (ICD-10-PCS; 2024-08-17)
PROC: 0SPD0JZ Removal of Synthetic Substitute from Left Knee Joint, Open Approach (ICD-10-PCS; principal; 2024-08-17 07:30)
DX: M17.12 Unilateral primary osteoarthritis, left knee (principal); K70.0 Alcoholic fatty liver; K70.9 Alcoholic liver disease, unspecified; F32.A Depression, unspecified; E66.9 Obesity, unspecified; G89.18 Other acute postprocedural pain; E78.5 Hyperlipidemia, unspecified; F41.9 Anxiety disorder, unspecified; Z68.34 Body mass index [BMI] 34.0-34.9, adult; Z87.891 Personal history of nicotine dependence; Z79.899 Other long term (current) drug therapy; Z88.5 Allergy status to narcotic agent
CPT/HCPCS: 64448; 64999; 80053; 85025

== ENCOUNTER → 2024-08-30 | Outpatient (CLI) | payer MEDICARE, OTHER ==
--- NOTE | 2024-08-30 12:14 | US ---
EXAMINATION TYPE: US venous doppler duplex LE LT DATE OF EXAM: 08/30/2024 11:06 AM COMPARISON: NONE CLINICAL INDICATION: Female, 53 years old with history of M79.662 PAIN IN LEFT LOWER LEG R22.42; Tota l left knee replacement on 08/17/24. Leg bruising and pain. No redness. Patient states coldness. O n blood thinners. TECHNIQUE: The lower extremity deep venous system is examined utilizing real time linear array sonog melissa with graded compression, color doppler sonography, and spectral doppler. SIDE PERFORMED: Left FINDINGS: VESSELS IMAGED: Common Femoral Vein Deep Femoral Vein Greater Saphenous Vein * Femoral Vein Popliteal Vein Small Saphenous Vein * Proximal Calf Veins (* superficial vessels) Left Leg: Negative for DVT Grayscale, color doppler, spectral doppler imaging performed of the deep veins of the lower extremiti es. IMPRESSION: No evidence for DVT within the left lower extremity imaged from the groin to the upper calf. [facility], , 08/30/2024 12:12 PM
== END | disposition home or self-care (01) ==
LOC: RADUSWWP 10:49
PROVIDERS: ATTEND Orthopaedic Surgery
DX: S80.12XA Contusion of left lower leg, initial encounter (principal); R22.42 Localized swelling, mass and lump, left lower limb; Z79.01 Long term (current) use of anticoagulants; Z96.652 Presence of left artificial knee joint

== ENCOUNTER 2025-03-03 06:46 | Emergency (ER) | payer MEDICARE ==
[2025-03-03 06:55] VITALS: RESP 18
--- NOTE | 2025-03-03 07:05 | ED ---
Fall HPI - General Chief Complaint: Fall Stated Complaint: fall;knee injury Time Seen by Provider: 03/03/25 06:57 Source: patient, EMS, RN notes reviewed Mode of arrival: EMS - History of Present Illness Initial Comments: 54-year-old female presenting to emergency department via EMS for complaint of left knee pain. Patient states she was walking outside this morning when she sl ipped on her steps causing her to fall with her left knee going behind her leg. Patient denies hitting her head or loss of conscious at the time of the fall. Denies imaging time the fall. Patient has been having severe pain over her left knee and has been unable to flex or extend her knee since the fall. Patient has a history of a total knee replacement with Dr. Kennedy in July 2024. - Related Data Home Medications Medication Instructions Recorded Confirmed Ascorbic Acid [Vitamin C] 500 mg PO DAILY 08/11/24 08/17/24 Atorvastatin [Lipitor] 10 mg PO HS 08/11/24 08/17/24 Cholecalciferol [Vitamin D3 (25 25 mcg PO DAILY 08/11/24 08/17/24 Mcg = 1000 Iu)] Cyanocobalamin [Vitamin B-12] 500 mcg PO DAILY 08/11/24 08/17/24 Cyclobenzaprine [Flexeril] 10 mg PO TID PRN 08/11/24 08/17/24 Escitalopram Oxalate [Lexapro] 20 mg PO QAM 08/11/24 08/17/24 Fluticasone Nasal Reseda [Flonase 1 spray EA NOSTRIL DAILY PRN 08/11/24 08/17/24 Nasal Reseda] Lidocaine 5% Patch [Lidoderm 5% 2 patch TOPICAL DAILY 08/11/24 08/17/24 Patch] Melatonin 5 mg PO HS PRN 08/11/24 08/17/24 Multivitamins, Thera [Multivitamin 1 tab PO DAILY 08/11/24 08/17/24 (formulary)] Pregabalin [Lyrica] 50 mg PO BID 08/11/24 08/17/24 Tirzepatide [Zepbound] 5 mg SQ TH 08/11/24 08/17/24 Turmeric Root Extract [Turmeric] 500 mg PO DAILY 08/11/24 08/17/24 buPROPion HCL [buPROPion HCL SR] 150 mg PO Q12HR 08/11/24 08/17/24 hydrOXYzine HCL [Atarax] 25 mg PO HS PRN 08/11/24 08/17/24 Previous Rx's Medication Instructions Recorded Apixaban [Eliquis] 2.5 mg PO BID #60 tab 08/18/24 HYDROcodone/APAP 7.5-325MG [Todd 1 - 2 tab PO Q6HR PRN #36 tab 08/18/24 7.5-325] Sennosides/Docusate Sodium [Senna 1 each PO DAILY #20 capsule 08/18/24 Plus 8.6-50 mg Softgel] Allergies Allergy/AdvReac Type Severity Reaction Status Date / Time morphine AdvReac SEVERE Verified 03/03/25 06:55 HEADACHE Review of Systems ROS Statement: Those systems with pertinent positive or pertinent negative responses have been documented in the HPI. ROS Other: All systems not noted in ROS Statement are negative. Past Medical History Past Medical History: Chest Pain / Angina, GERD/Reflux, Hyperlipidemia, Liver Disease, Osteoarthritis (OA) Additional Past Medical History / Comment(s): DDD, DJD, ARRYTHMIA, INSOMNIA, ALCOHOLIC FATTY LIVER History of Any Multi-Drug Resistant Organisms: None Reported Past Surgical History: Back Surgery, Breast Surgery, Section, Cholecystectomy, Orthopedic Surgery, Tubal Ligation, Uterine Ablation Additional Past Surgical History / Comment(s): D&C, RIGHT OOPHORECTOMY, BREAST BX'S, LUMBAR LAMINECTOMY, CERVICAL FUSION, LYSIS OF ADHESIONS/LAPAROSCOPY on the left knee medial compartment arthroplasty Past Anesthesia/Blood Transfusion Reactions: No Reported Reaction Past Psychological History: Anxiety, Depression Smoking Status: Former smoker Past Alcohol Use History: Occasional Past Drug Use History: None Reported - Past Family History Mother Family Medical History: Cancer Additional Family Medical History / Comment(s): UTERINE CA General Exam General appearance: alert Neck exam: Present: normal inspection. Absent: tenderness, meningismus, lymphadenopathy Respiratory exam: Present: normal lung sounds bilaterally. Absent: respiratory distress, wheezes, rales, rhonchi, stridor Cardiovascular Exam: Present: regular rate, normal rhythm, normal heart sounds. Absent: systolic murmur, diastolic murmur, rubs, gallop, clicks GI/Abdominal exam: Present: soft, normal bowel sounds. Absent: distended, tenderness, guarding, rebound, rigid Left Knee exam: Present: tenderness, swelling, deformity. Absent: full ROM, dislocation, effusion Neurovascular tendon exam: Present: no vascular compromise. Absent: pulse deficit, abnormal cap refill, sensory deficit Gait: not tested/not observed Back exam: Present: normal inspection Neurological exam: Present: alert, oriented X3, CN II-XII intact Course Vital Signs 03/03/25 03/03/25 06:49 07:29 Temperature 97.7 F Pulse Rate 92 92 Respiratory 18 18 Rate Blood Pressure 140/91 139/84 O2 Sat by Pulse 100 100 Oximetry Medical Decision Making - Medical Decision Making Was pt. sent in by a medical professional or institution (, PA, [employer], urgent care, hospital, or detention...) When possible be specific @ -No Did you speak to anyone other than the patient for history (EMS, parent, family, police, friend...)? What history was obtained from this source @ -No Did you review nursing and triage notes (agree or disagree)? Why? @ -I reviewed and agree with nursing and triage notes Were old charts reviewed (outside hosp., previous admission, EMS record, old EKG, old radiological studies, urgent care reports/EKG's, detention records)? Report findings @ -No old charts were reviewed Differential Diagnosis (chest pain, altered mental status, abdominal pain women, abdominal pain men, vaginal bleeding, weakness, fever, dyspnea, syncope, headache, dizziness, GI bleed, back pain, seizure, CVA, palpatations, mental health, musculoskeletal)? @ -Differential Musculoskeletal Muscular strain, contusion, ligament sprain, fracture, arthritis, septic arthritis, bursitis, cellulitis, muscle spasm, nerve compression, DVT, arterial occlusion, herpes zoster, electrolyte abnormality, tumor.... This is not meant to be in all inclusive list EKG interpreted by me (3pts min.). @ -None X-rays interpreted by me (1pt min.). @ -X-ray of the left knee reveals a comminuted fracture above the left femoral prosthesis CT interpreted by me (1pt min.). @ -None done U/S interpreted by me (1pt. min.). @ -None done What testing was considered but not performed or refused? (CT, X-rays, U/S, labs)? Why? @ -None What meds were considered but not given or refused? Why? @ -None Did you discuss the management of the patient with other professionals (professionals i.e. DrTimbo, PA, [employer], lab, RT, psych nurse, case management social worker, wooden fence erector, teacher, chief quality officer, therapeutic case manager)? Give summary @ -spoke with salesperson jewelry heat plant specialist, Dr. Kennedy, who has recommended transfer for orthopedic trauma surgical intervention. spoke with [facility] Trauma specialist, Dr. Akins, who has agreed to accept the patient as an orthopedic trauma transfer. He has also recommended that she be placed in a knee immobilizer. @ -No Was critical care preformed (if so, how long)? @ -No Were there social determinants of health that impacted care today? How? (Homelessness, low income, unemployed, alcoholism, drug addiction, transportation, low edu. Level, literacy, decrease access to med. care, alf, rehab)? @ -No Was there de-escalation of care discussed even if they declined (Discuss DNR or withdrawal of care, Hospice)? DNR status @ -No What co-morbidities impacted this encounter? (DM, HTN, Smoking, COPD, CAD, Cancer, CVA, ARF, Chemo, Hep., AIDS, mental health diagnosis, sleep apnea, morbid obesity)? @ -None Was patient admitted / discharged? Hospital course, mention meds given and route, prescriptions, significant lab abnormalities, going to OR and other pertinent info. @ -Transferred. 54-year-old female presenting via EMS after fall and left knee pain. There is deformity noted of the left knee however the she is neurovascularly intact. Unable to assess range of motion due to pain. She is provided with Dilaudid for pain. X-ray is concerning for a comminuted fracture above the left femoral prosthesis. Spoke with on-call heat plant specialist, Dr. Kennedy, was recommended transfer to orthopedic trauma hospital such as [facility] for further surgical intervention. Patient has been accepted by Dr. Akins Undiagnosed new problem with uncertain prognosis? @ -No Drug Therapy requiring intensive monitoring for toxicity (Heparin, Nitro, Insulin, Cardizem)? @ -No Were any procedures done? @ -No Diagnosis/symptom? @ -periprosthetic fracture of the left knee Acute, or Chronic, or Acute on Chronic? @ -acute Uncomplicated (without systemic symptoms) or Complicated (systemic symptoms)? @ -complicated Side effects of treatment? @ -No Exacerbation, Progression, or Severe Exacerbation? @ -No Poses a threat to life or bodily function? How? (Chest pain, [place], [place], pneumonia, PE, COPD, DKA, ARF, appy, cholecystitis, CVA, Diverticulitis, Homicidal, Suicidal, threat to staff... and all critical care pts) @ -No Disposition Clinical Impression: Fall, Kianna-prosthetic femoral shaft fracture Disposition: OTHER INSTITUTION NOT DEFINED Condition: Stable Referrals: None,Stated [Primary Care Provider] - 1-2 days - Out of Hospital Transfer - Req. Specs Out of Hospital Transfer - Requested Specifics: Other Non-Acute (Patito Sanders
[2025-03-03] MEDS: HYDROmorphone 1 MG/ML 1 ML SYRINGE IVP STA (07:23)
--- NOTE | 2025-03-03 07:40 | XR ---
EXAMINATION TYPE: XR knee limited LT DATE OF EXAM: 03/03/2025 7:15 AM COMPARISON: 08/17/2024 CLINICAL INDICATION: Female, 54 years old with history of fall, pain, pain TECHNIQUE: 3 view(s) obtained. FINDINGS: There is a comminuted fracture of the distal femur just above the prosthesis. Joint effusion appears to be present. Tibial component and proximal tibia appear intact. No additional fractures are identif ied. IMPRESSION: 1. Comminuted fracture just above the left femoral prosthesis. [facility], , 03/03/2025 7:38 AM
[2025-03-03] MEDS: KETOROLAC 15 MG/ML 1 ML VIAL IVP STA (08:01)
[2025-03-03] MEDS: ORPHENADRINE 30 MG/ML 2 ML VIAL IVP STA (08:01)
[2025-03-03] MEDS: HYDROmorphone 1 MG/ML 1 ML SYRINGE IM PRN (09:01)
[2025-03-03 09:10] VITALS: BP 134/70; PULSE 90; TEMP 98
== END 2025-03-03 09:11 | disposition other institution (70) ==
LOC: EC 06:46
DX: S72.8X2A Other fracture of left femur, initial encounter for closed fracture (principal); Z88.5 Allergy status to narcotic agent; Z87.891 Personal history of nicotine dependence; W10.9XXA Fall (on) (from) unspecified stairs and steps, initial encounter; Y93.01 Activity, walking, marching and hiking
CPT/HCPCS: 73560; 99285; 96374; 96375 ×2; 96372; J2360; J1171; J1885